=== PATIENT | female | born 1995 | race African-American/Black ===

== ENCOUNTER 2020-04-18 21:35 | Emergency (ER) | payer OTHER ==
[~2020-04-18] VITALS: Ht 160 cm; Wt 65.0 kg
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
[2020-04-18] MEDS ORDERED: ALB0.5UD IH (22:04)
[2020-04-18] MEDS ORDERED: ALPR-624 PO (22:06)
--- NOTE | 2020-04-18 22:09 | NUR ---
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
--- NOTE | 2020-04-18 22:24 | NUR ---
PATIENT REPORTS GIVING URINE TO STAFF. NO URINE SPECIMEN COLLECTED
--- NOTE | 2020-04-18 23:22 | NUR ---
PT WITH STABLE VS. REPORTS IMPROVEMENT TO HER SYMPTOMS. CANNOT QUALIFY FOR ME WHERE HER PAIN IS OR THE LEVEL OF PAIN. PT VERY SLEEPY, REQUIRES LOUD VOICE TO AWAKEN. DR. ALARCON AT BEDSIDE AND PT MORE INTERACTIVE WITH HIM.
[2020-04-18] MEDS ORDERED: TETanus/Pertussis (Acell)/Diphther VAC/PF (Tdap-Adult) 0.5ml syringe IMVAC ONE (23:45)
[2020-04-18 23:53] LABS: BASOPHILS % (AUTO) 0.3 % (0-1); EOSINOPHILS # (AUTO) 0.1 X10'3 (0-0.9); EOSINOPHILS % (AUTO) 0.9 % (0-6); HEMATOCRIT 41.3 % (35.0-45.0); HEMOGLOBIN 14.1 g/dl (12.0-16.0); LYMPHOCYTES # (AUTO) 1.9 X10'3 (1.1-4.8); LYMPHOCYTES % (AUTO) 19.7 % (21-51); MEAN CORPUSCULAR HEMOGLOBIN 32.7 PG (27.0-31.0); MEAN CORPUSCULAR HGB CONC 34.2 g/dL (33.0-36.5); MEAN CORPUSCULAR VOLUME 95.4 FL (78-98); MONOCYTES # (AUTO) 0.8 X10'3 (0-0.9); MONOCYTES % (AUTO) 8.6 % (2-12); NEUTROPHILS # (AUTO) 6.7 X10'3 (1.8-7.7); NEUTROPHILS % (AUTO) 70.5 % (42-75); PLATELET COUNT 371 X10'3 (140-440); RED BLOOD COUNT 4.33 X10'6 (4.20-5.60); RED CELL DISTRIBUTION WIDTH 15.3 % (11.5-14.5); WHITE BLOOD COUNT 9.6 X10'3 (4.5-11.0)
[2020-04-19 00:06] LABS: ALANINE AMINOTRANSFERASE 50 U/L (12-78); ALBUMIN 4.3 G/DL (3.4-5.0); ALBUMIN/GLOBULIN RATIO 1.2 (1.1-1.5); ALKALINE PHOSPHATASE 70 IU/L (46-116); ANION GAP 8 (8-16); ASPARTATE AMINO TRANSFERASE 66 U/L (10-37); BILIRUBIN,TOTAL 0.5 MG/DL (0.1-1.0); BLOOD UREA NITROGEN 6 MG/DL (7-18); BUN/CREATININE RATIO 6.3 (6.6-38.0); CALCIUM 9.2 MG/DL (8.5-10.1); CHLORIDE 102 MMOL/L (99-107); CREATININE 0.95 MG/DL (0.40-0.90); ETHANOL 0.142 GM/DL (0.0-0.010); GLUCOSE 81 MG/DL (70-104); POTASSIUM 3.3 MMOL/L (3.5-5.1); SODIUM 139 MMOL/L (135-145); TOTAL CARBON DIOXIDE 28.8 MMOL/L (24-32); TOTAL PROTEIN 7.9 G/DL (6.4-8.2); eGFR 74 ML/MIN
--- NOTE | 2020-04-19 01:15 | NUR ---
SPOKE WITH DR Stover ABOUT PT POTASSIUM LEVEL AND ETOH . IN CASE HE WOULD LIKE TO PRESCRIBED MAGOR THIMINE . DENIES NEED TO ADRESS THESE LABS , IV DISCONTINUED INTACT . PT TOLEREATED WELL .
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
--- NOTE | 2020-04-19 01:56 | NUR ---
SHARLENE FROM [facility] RETURN CALL THEY WILL ACCEPT THE PATIENT THEY ARE CURRENTLY LOOKING FOR [facility] AND WILL RETURN A CALL OF ITS LOCATION SHORTLY . [facility] NEED[facility] TO AUTHORIZE A TAXI TO THE [facility] . CHARGE NURSE AWARE . PT FED SANDWITCH AND JUICE
--- NOTE | 2020-04-19 02:25 | NUR ---
[facility] called for transport to [facility] ETA 30 minutes
--- NOTE | 2020-04-19 02:30 | NUR ---
PT HAS BEEN GIVEN A ROOM AT THE [facility] . PAID FOR BY [facility] . PT HAS BEEN INSTRUCTED TO STAY IN HER [facility] ROOM CHECK OUT IS 11 AM [facility] WILL PROVIDE TRASNPORTATION TO [facility] . A CAB WILL BE PROVIDED BY [facility] IN AM TO THEIR FACILITY FOR AN ASSESSMENT . PT VERBALIXED UNDERSTANDING . NO FURTHER QUESTIONS ASKED PT AMBULATED OFF UNIT WITH STEAD[facility] GAIT AND ALL HER BELONGINGS.
[2020-04-19 02:49] VITALS: BP 111/68
== END 2020-04-19 02:51 | disposition home or self-care (01) ==
LOC: ER 21:37
DX: S06.0X0A Concussion without loss of consciousness, initial encounter (principal); S05.12XA Contusion of eyeball and orbital tissues, left eye, initial encounter; F10.920 Alcohol use, unspecified with intoxication, uncomplicated; F12.10 Cannabis abuse, uncomplicated; Z88.5 Allergy status to narcotic agent; Z79.899 Other long term (current) drug therapy; Z59.0 Homelessness; Y04.0XXA Assault by unarmed brawl or fight, initial encounter; Y93.89 Activity, other specified; Y92.89 Other specified places as the place of occurrence of the external cause; Y99.8 Other external cause status
CPT/HCPCS: 36415; 70450; 70486; 80053; 80320; 85025; 90471; 90715; 99285